=== PATIENT | male | born 1985 | race Caucasian/White ===

== ENCOUNTER 2024-10-04 02:49 | Emergency (ER) | payer BC, SELFPAY ==
[2024-10-04 02:51] VITALS: BP 138/106
[2024-10-04] MEDS: TYLENOL 1000 MG PO (04:04)
[2024-10-04 04:10] VITALS: BP 107/78
--- NOTE | 2024-10-04 04:38 | ED.GENMED ---
History of Present Illness
General
Chief Complaint: Fainting/Passed Out
Source: patient and spouse
Exam Limitations: none
Time Seen by Provider: 10/04/24 03:50
Nursing documentation reviewed up to this point in time: agreed with
History of Present Illness
History of Present Illness:
This is a 38-year-old gentleman who underwent vasectomy yesterday afternoon. He has been taking Tylenol alternating with ibuprofen as well as applying local ice. Feeling well but he got up out of bed to go to the bathroom and after voiding he
became lightheaded, developed tunnel vision and proceeded to pass out striking his mouth on the sink. He complains of laceration just below his lower lip that is through and through as well as feeling that his lower central incisors and right upper
central incisor is mildly loose. No fractured and or chipped teeth. He denies headache, denies neck nor back pain. He denies chest pain or coughing or shortness of breath, denies nausea or vomiting nor diarrhea nor abdominal pain. He has been
voiding well, denies hematuria. He denies scrotal edema.
He reports most recent Tdap approximately 3 years ago.
Past History
Past History
ED Past Medical History: None
ED Past Surgical History: Orthopedic (Shoulder surgery) and Urological (Vasectomy October 03, 2024)
Social History
Tobacco: Non-smoker
Alcohol: Occasional
Personal:
Living: with family
Employment: Employed
Family History
Family History: Other (Noncontributory)
Phy Exam
Physical Exam
Physical Exam:
TRAUMA EXAM:
VITAL SIGNS: Vital signs reviewed, cooperative
DISTRESS: No active disease
EYES: Pupils reactive, no orbital trauma
NOSE: No deformity or epistaxis
FACE AND SCALP: No scalp trauma, external canals no blood. Central superior chin just below the lower lip is a 1 cm curved horizontal laceration with a 0.75 horizontal laceration buccal mucosa of the lower lip. This is a through and through
laceration. No active bleeding. Teeth are intact. Mild tenderness to right upper central incisor and mild tenderness to lower central incisors. There is no gingival tenderness nor laceration.
NECK: Supple nontender, full range of motion without difficulty nor pain.
BACK: Back nontender, pelvis stable to compression
RESPIRATORY: No distress, breath sounds normal, no tender chest wall
CARDIAC: No murmur, pulses equal and strong
ABDOMEN: Soft nontender bowel sounds normal
SKIN: Warm and dry, normal color. Good turgor.
EXTREMITIES: Nontender
NEUROLOGICAL: Alert, oriented, no motor deficits
PSYCH: Mood affect normal
Course
Orders/Labs/Results
Orders:
Orders
10/04/24 02:57
ECG [Electrocardiogram (*1)] Urgent
Reason for Study: Syncope
Cardiology Consult: Unknown
10/04/24 02:58
EKG- Treatment ONCE
10/04/24 04:00
Acetaminophen [Tylenol] 1,000 mg .ROUTE .STK-MED ONE
10/04/24 04:04
Acetaminophen [Tylenol] 1,000 mg PO NOW STA
10/04/24 04:15
Sodium Bicarbonate 50 meq .ROUTE .STK-MED ONE
10/04/24 04:48
Amoxicillin [Amoxil] 500 mg PO NOW STA
Vital Signs
Initial and Last Documented VS:
Initial Vital Signs
Temp Pulse Resp BP Pulse Ox
97.8 F 60 22 138/106 100
10/04/24 02:51 10/04/24 02:51 10/04/24 02:51 10/04/24 02:51 10/04/24 02:51
Last Documented Vital Signs
Temp Pulse Resp BP Pulse Ox
97.8 F 76 20 118/70 98
10/04/24 02:51 10/04/24 05:00 10/04/24 05:00 10/04/24 05:00 10/04/24 05:00
Procedures
Laceration Closure
Lower Distal Lip:
Status of Wound: clean
Size of Wound in cm: 1.0
Description of Wound Edges: sharp and other (Through and through laceration)
Preparation: cleaned with saline
Anesthesia: 1% Lidocaine with epi and added Na Bicarb to local
Revision/Debridement: routine- no revision and irrigate-direct pressure
Wound exploration: explored to base- no FB and no tendon involvement
Type of Closure: layered closure
Skin Closure Material: 5-0 prolene (3) and 5-0 chromic gut (2)
Number of sutures: 5
MDM/Problems Addressed
Differential Diagnosis Includes:
History most consistent with vasovagal syncope. Other consideration is bradycardia arrhythmia, sinus arrest.
Nothing in history or exam to suggest acute blood loss.
Exam notable for through and through laceration of the lower lip/superior chin region. Vermilion border is not involved.
Very mild loosening of central incisors but no dental fracture nor gingival injury.
body liner shows normal sinus rhythm to sinus bradycardia.
Will check orthostatic vital signs.
Will plan for suture repair of external as well as buccal mucosal lacerations.
If orthostatic vital signs are positive will initiate IV fluids and check labs.
*Pulse Oximetry
Patient hypoxic: no
*EKG
Interpreted by ED Provider?: Yes
Comparison EKG: no comparison EKG present
Rate: bradycardiac
Rhythm: sinus
[place]: normal axis
Interval: normal interval
QRS Pattern: normal QRS
Ischemia: no ischemia
*Java Performance Engineer Interpretation
Rate: normal and bradycardiac
Interpretation: normal
Rhythm: sinus
*Critical Care Note
Total Time (30-74mins, 75-104mins- exclusive of procedures): Not Applicable
Update Note
Update Note:
04:45
Orthostatic vital signs are negative.
Patient ambulatory without difficulty.
Will initiate amoxicillin for infection prevention.
Recommend prompt follow-up with dentist regarding dental injury mildly loose teeth. Encouraged limiting diet to soft foods, clear liquids, avoid biting.
Recommend follow-up with PCP for suture removal.
ED Attending Note
-
Portions of this chart may have been created with voice recognition software.� Occasional wrong word or��sound alike� substitutions may have occurred due to the inherent limitations of voice recognition software.
Discharge Plan
Departure
Patient Disposition: Home (Routine Discharge)
Date of Disposition: 10/04/24
Time of Disposition: 04:50
Patient with high blood pressure during this ER visit?: No
Condition: Good
Discharge Problem:
Syncope, vasovagal, Through and through lower lip laceration, Dental injury
Instructions: Laceration Repair With Stitches (DC), Syncope (Fainting) (DC), Diet After Mouth or Throat Surgery
Prescriptions:
New
amoxicillin 875 mg tablet
875 mg PO BID Qty: 10 0RF
No Action
ibuprofen 800 MG tablet
800 mg PO Q6HPRN PRN (Reason: PAIN WITH FOOD) Qty: 20 0RF
Referrals:
UNKNOWN - PT DOES,NOT KNOW [Family Provider] -
Activity Restrictions/Additional Instructions:
Over the next 5 days limit your diet to soft foods, clear liquids, avoid biting.
Follow-up with your primary care physician in 5 to 7 days for suture removal.
Call your dentist today for follow-up this week regarding dental injury/loose teeth.
Stay well-hydrated on a daily basis.
Avoid rapid standing, prolonged standing at least over the next 2 to 3 days.
Interventions
Interventions:
*Risk Screen - Suicide Last Done: 10/04/24 02:51
*General Assessment Last Done: 10/04/24 03:17
*Neglect/Abuse Screening Last Done: 10/04/24 02:51
*ED- Fall Risk Assessment Last Done: 10/04/24 03:17
*ED COVID-19 Vaccine History Last Done: 10/04/24 03:17
*Nursing Disposition Last Done: 10/04/24 05:19
ED- Cardiac Assessment Last Done: 10/04/24 03:17
ED- Neurological Assessment Last Done: 10/04/24 03:17
ED-Skin Assessment Last Done: 10/04/24 03:17
Discharge Date and Time
Discharge Date/Time: 10/04/24 05:20
Print Language: [id number]
[2024-10-04 04:49] VITALS: BP 115/67; BP 116/58; BP 132/70; PULSE 53; PULSE 58; PULSE 66
[2024-10-04] MEDS: AMOXIL 500 MG PO (04:56)
[2024-10-04 05:00] VITALS: BP 118/70
== END 2024-10-04 05:20 | disposition home or self-care (01) ==
LOC: EMR 02:49
PROVIDERS: EMERGENCY PHYSICIAN Emergency Medicine
DX: S01.511A Laceration without foreign body of lip, initial encounter (principal); W19.XXXA Unspecified fall, initial encounter; K08.89 Other specified disorders of teeth and supporting structures
CPT/HCPCS: 99285; 40654; 12051; 93005